=== PATIENT | male | born 1985 | race Caucasian/White ===

== ENCOUNTER 2018-07-31 20:25 | Emergency (ER) | payer MEDICAID, OTHER ==
[~2018-07-31] VITALS: Ht 182.9 cm; Wt 73.0 kg
[~2018-07-31 20:25] MED LIST: CEPH500C5 PO; NO HOME MEDS
[2018-07-31 20:35] VITALS: BP 126/75
[2018-07-31] MEDS ORDERED: MUPI22OI30 TOP (21:54)
== END 2018-07-31 22:17 | disposition home or self-care (01) ==
LOC: ER 20:26
DX: A49.02 Methicillin resistant Staphylococcus aureus infection, unspecified site (principal); J34.0 Abscess, furuncle and carbuncle of nose; I10 Essential (primary) hypertension; F17.200 Nicotine dependence, unspecified, uncomplicated; F15.90 Other stimulant use, unspecified, uncomplicated; F11.90 Opioid use, unspecified, uncomplicated
CPT/HCPCS: 99283

== ENCOUNTER 2018-08-28 14:56 | Emergency (ER) | payer MEDICAID ==
[~2018-08-28] VITALS: Ht 182.9 cm; Wt 84.1 kg
[2018-08-28 15:19] VITALS: BP 120/81
[2018-08-28] MEDS ORDERED: TETanus/Pertussis (Acell)/Diphther VAC/PF (Tdap-Adult) 0.5ml syringe IM ONE (15:30)
[2018-08-28] MEDS ORDERED: LIDOcaine 1.5% w/epinephrine 1:200,000 5ml ampul IJ ONE (15:30)
[2018-08-28] MEDS ORDERED: CEPH-572 PO (15:51)
[2018-08-28] MEDS ORDERED: SULF1TAB49 PO (15:51)
== END 2018-08-28 16:13 | disposition home or self-care (01) ==
LOC: ER 14:57
DX: L02.413 Cutaneous abscess of right upper limb (principal); I10 Essential (primary) hypertension; F15.90 Other stimulant use, unspecified, uncomplicated; F11.90 Opioid use, unspecified, uncomplicated; Z86.14 Personal history of Methicillin resistant Staphylococcus aureus infection
CPT/HCPCS: 10060; 90471; 90715; 99283; A6255; A6449; J3490

== ENCOUNTER 2019-02-07 22:38 | Emergency (ER) | payer MEDICAID, OTHER ==
[~2019-02-07] VITALS: Ht 177.8 cm; Wt 85.0 kg
[~2019-02-07 22:38] MED LIST changes: -CEPH500C5 PO
[2019-02-07 22:52] VITALS: BP 137/77
[2019-02-07] MEDS ORDERED: sulfamethoxazole/trimethoprim DS (800/160mg) tablet PO ONE (23:50)
[2019-02-07] MEDS ORDERED: cephalexin 250mg capsule PO ONE (23:50)
[2019-02-07] MEDS ORDERED: SULF1TAB49 PO (23:52)
[2019-02-07] MEDS ORDERED: MUPI22OI30 TOP (23:52)
[2019-02-07] MEDS ORDERED: CEPH-572 PO (23:52)
== END 2019-02-08 00:20 | disposition home or self-care (01) ==
LOC: ER 22:38
DX: L02.11 Cutaneous abscess of neck (principal); I10 Essential (primary) hypertension; Z86.14 Personal history of Methicillin resistant Staphylococcus aureus infection; F15.90 Other stimulant use, unspecified, uncomplicated; F11.90 Opioid use, unspecified, uncomplicated; Z79.899 Other long term (current) drug therapy
CPT/HCPCS: 99283

== ENCOUNTER 2020-07-21 20:02 | Emergency (ER) | payer MEDICAID ==
[~2020-07-21] VITALS: Ht 182.9 cm; Wt 81.8 kg
[2020-07-21 20:21] VITALS: BP 122/71
[2020-07-21] MEDS ORDERED: MUPI22OI30 TOP (20:53)
[2020-07-21] MEDS ORDERED: SULF1TAB49 PO (20:53)
== END 2020-07-21 21:09 | disposition home or self-care (01) ==
LOC: ER 20:03
DX: S90.912A Unspecified superficial injury of left ankle, initial encounter (principal); S60.911A Unspecified superficial injury of right wrist, initial encounter; L03.116 Cellulitis of left lower limb; L03.113 Cellulitis of right upper limb; I10 Essential (primary) hypertension; F15.90 Other stimulant use, unspecified, uncomplicated; F11.90 Opioid use, unspecified, uncomplicated; Z86.14 Personal history of Methicillin resistant Staphylococcus aureus infection; Z72.89 Other problems related to lifestyle; Z79.899 Other long term (current) drug therapy; X58.XXXA Exposure to other specified factors, initial encounter; Y93.89 Activity, other specified; Y92.89 Other specified places as the place of occurrence of the external cause; Y99.8 Other external cause status
CPT/HCPCS: 99283

== ENCOUNTER 2020-08-07 11:20 | Emergency (ER) | payer MEDICAID ==
[~2020-08-07] VITALS: Ht 182.9 cm; Wt 84.1 kg
[2020-08-07 11:38] VITALS: BP 119/71
== END 2020-08-07 12:03 | disposition home or self-care (01) ==
LOC: ER 11:21
DX: R50.9 Fever, unspecified (principal); R11.2 Nausea with vomiting, unspecified; R53.1 Weakness; I10 Essential (primary) hypertension; F15.90 Other stimulant use, unspecified, uncomplicated; F11.90 Opioid use, unspecified, uncomplicated; F19.90 Other psychoactive substance use, unspecified, uncomplicated; Z86.14 Personal history of Methicillin resistant Staphylococcus aureus infection; Z72.89 Other problems related to lifestyle
CPT/HCPCS: 99281

== ENCOUNTER 2020-08-20 05:57 | Emergency (ER) | payer MEDICAID ==
[~2020-08-20] VITALS: Ht 177.8 cm; Wt 84.1 kg
[2020-08-20 06:01] VITALS: BP 146/91
[2020-08-20] MEDS ORDERED: ondansetron 4mg rapidly disintigrating tab PO ONE (06:15)
== END 2020-08-20 06:21 | disposition home or self-care (01) ==
LOC: ER 05:57
DX: R11.2 Nausea with vomiting, unspecified (principal); R19.7 Diarrhea, unspecified; R50.9 Fever, unspecified; I10 Essential (primary) hypertension; F15.90 Other stimulant use, unspecified, uncomplicated; F11.90 Opioid use, unspecified, uncomplicated; Z86.14 Personal history of Methicillin resistant Staphylococcus aureus infection; Z72.89 Other problems related to lifestyle
CPT/HCPCS: 99283

== ENCOUNTER 2020-08-27 09:22 | Emergency (ER) | payer MEDICAID ==
[~2020-08-27] VITALS: Ht 177.8 cm; Wt 87.6 kg
[2020-08-27] MEDS ORDERED: ondansetron 4mg rapidly disintigrating tab PO ONE (09:40)
--- NOTE | 2020-08-27 09:55 | NUR ---
PT PROVIDED URINE. PT ADMITTED TO OPIATE USE RECENTLY
[2020-08-27 10:16] LABS: BASOPHILS % (AUTO) 0.6 % (0-1); EOSINOPHILS # (AUTO) 0.1 X10'3 (0-0.9); EOSINOPHILS % (AUTO) 3.1 % (0-6); HEMATOCRIT 40.4 % (42.0-52.0); HEMOGLOBIN 13.8 g/dl (14.0-17.9); LYMPHOCYTES # (AUTO) 1.3 X10'3 (1.1-4.8); LYMPHOCYTES % (AUTO) 30.5 % (21-51); MEAN CORPUSCULAR HEMOGLOBIN 28.9 PG (27.0-31.0); MEAN PLATELET VOLUME 6.8 FL (7.4-10.4); MONOCYTES # (AUTO) 0.4 X10'3 (0-0.9); MONOCYTES % (AUTO) 8.7 % (2-12); NEUTROPHILS # (AUTO) 2.4 X10'3 (1.8-7.7); NEUTROPHILS % (AUTO) 57.1 % (42-75); PLATELET COUNT 163 X10'3 (140-440); RED BLOOD COUNT 4.76 X10'6 (4.70-6.10); RED CELL DISTRIBUTION WIDTH 13.4 % (11.5-14.5); WHITE BLOOD COUNT 4.2 X10'3 (4.5-11.0)
[2020-08-27 10:19] LABS: CLARITY,URINE CLEAR (Clear); COLOR,URINE YELLOW (Yellow); GLUCOSE, URINE NEGATIVE (Neg); KETONES,URINE NEGATIVE (Neg); LEUKOCYTE ESTERASE ,URINE NEGATIVE (Neg); NITRITES, URINE NEGATIVE (Neg); OCCULT BLOOD,URINE NEGATIVE (Neg); PH,URINE 5.5 (4.8-8.0); PROTEIN,URINE TRACE mg/dl (Neg)
[2020-08-27 10:23] LABS: UA COLLECTION TYPE CLN CATCH MIDSTREAM
[2020-08-27 10:26] LABS: MUCUS STRANDS MODERATE /LPF (Neg); SQUAMOUS EPITHELIAL CELL,UR FEW /LPF (FEW)
[2020-08-27 10:27] LABS: BACTERIA,URINE FEW /HPF (Neg); RBC,URINE 0-2 /HPF (0-2); WBC,URINE 0-4 /HPF (0-4)
[2020-08-27 10:34] LABS: URINE AMPHETAMINE SCREEN POSITIVE (Neg); URINE BARBITUATE SCREEN NEGATIVE (Neg); URINE BENZODIAZEPINES SCREEN NEGATIVE (Neg); URINE CANNABINOID SCREEN NEGATIVE (Neg); URINE COCAINE SCREEN NEGATIVE (Neg); URINE METHADONE SCREEN NEGATIVE (Neg); URINE OPIATE SCREEN POSITIVE (Neg); URINE PHENCYCLIDINE SCREEN NEGATIVE (Neg)
[2020-08-27 10:34] LABS: ALANINE AMINOTRANSFERASE 120 U/L (12-78); ALBUMIN 3.7 G/DL (3.4-5.0); ALBUMIN/GLOBULIN RATIO 0.9 (1.1-1.5); ALKALINE PHOSPHATASE 85 IU/L (46-116); ANION GAP 7 (8-16); ASPARTATE AMINO TRANSFERASE 79 U/L (10-37); BILIRUBIN,TOTAL 0.5 MG/DL (0.1-1.0); BLOOD UREA NITROGEN 18 MG/DL (7-18); BUN/CREATININE RATIO 20.2 (5.4-32.0); CALCIUM 8.8 MG/DL (8.5-10.1); CHLORIDE 103 MMOL/L (99-107); CREATININE 0.89 MG/DL (0.60-1.10); GLUCOSE 109 MG/DL (70-104); POTASSIUM 3.7 MMOL/L (3.5-5.1); SODIUM 141 MMOL/L (135-145); TOTAL CARBON DIOXIDE 30.9 MMOL/L (24-32); eGFR > 90 ML/MIN
[2020-08-27 10:58] VITALS: BP 127/62
== END 2020-08-27 10:54 | disposition home or self-care (01) ==
LOC: ER 09:22
DX: R11.2 Nausea with vomiting, unspecified (principal); R10.13 Epigastric pain; R19.7 Diarrhea, unspecified; I10 Essential (primary) hypertension; F12.90 Cannabis use, unspecified, uncomplicated; F15.90 Other stimulant use, unspecified, uncomplicated; Z86.14 Personal history of Methicillin resistant Staphylococcus aureus infection; Z72.89 Other problems related to lifestyle
CPT/HCPCS: 36415; 80053; 80305; 81001; 85025; 99283

== ENCOUNTER 2021-01-25 13:13 | Emergency (ER) | payer MEDICAID ==
[~2021-01-25] VITALS: Ht 180.3 cm; Wt 81.8 kg
[2021-01-25 13:27] VITALS: BP 137/86
[2021-01-25] MEDS ORDERED: sulfamethoxazole/trimethoprim DS (800/160mg) tablet PO ONE (14:00)
[2021-01-25] MEDS ORDERED: cephalexin 250mg capsule PO ONE (14:00)
[2021-01-25] MEDS ORDERED: CEPH-585 PO (14:14)
[2021-01-25] MEDS ORDERED: SULF1TAB49 PO (14:14)
[2021-01-25] MEDS ORDERED: NALO4SPR NS (14:15)
== END 2021-01-25 14:18 | disposition home or self-care (01) ==
LOC: ER 13:14
DX: L02.413 Cutaneous abscess of right upper limb (principal); F15.10 Other stimulant abuse, uncomplicated; I10 Essential (primary) hypertension; F12.90 Cannabis use, unspecified, uncomplicated; F11.90 Opioid use, unspecified, uncomplicated; F19.90 Other psychoactive substance use, unspecified, uncomplicated; Z86.14 Personal history of Methicillin resistant Staphylococcus aureus infection; Z72.89 Other problems related to lifestyle; Z79.2 Long term (current) use of antibiotics; Z79.899 Other long term (current) drug therapy
CPT/HCPCS: 99283

== ENCOUNTER 2021-03-30 06:49 | Emergency (ER) | payer MEDICAID ==
[~2021-03-30] VITALS: Ht 180.3 cm; Wt 90.0 kg
[~2021-03-30 06:49] MED LIST changes: +NALO4SPR NS
[2021-03-30] MEDS ORDERED: normal saline 1000ML IV soln IVB ONE (07:00)
--- NOTE | 2021-03-30 10:03 | NUR ---
I CALLLED PT'S [facility] [phone], THEY SAID THEY WOULD GET HER A MESSAGE TO PICK PT UP.
[2021-03-30 10:43] VITALS: BP 117/74
== END 2021-03-30 10:44 | disposition home or self-care (01) ==
LOC: ER 06:49
DX: T40.1X4A Poisoning by heroin, undetermined, initial encounter (principal); T43.624A Poisoning by amphetamines, undetermined, initial encounter; R53.83 Other fatigue; F15.10 Other stimulant abuse, uncomplicated; F11.10 Opioid abuse, uncomplicated; F17.200 Nicotine dependence, unspecified, uncomplicated; I10 Essential (primary) hypertension; F12.90 Cannabis use, unspecified, uncomplicated; Y92.89 Other specified places as the place of occurrence of the external cause; Z86.14 Personal history of Methicillin resistant Staphylococcus aureus infection
CPT/HCPCS: 93005; 96360; 99283; J7030

== ENCOUNTER 2021-06-01 21:13 | Emergency (ER) | payer MEDICAID ==
[~2021-06-01] VITALS: Ht 182.9 cm; Wt 85.0 kg
[2021-06-01 21:36] VITALS: BP 119/86
[2021-06-01 22:07] LABS: BASOPHILS % (AUTO) 0.5 % (0-1); EOSINOPHILS # (AUTO) 0.2 X10'3 (0-0.9); EOSINOPHILS % (AUTO) 3.1 % (0-6); HEMATOCRIT 41.8 % (42.0-52.0); HEMOGLOBIN 14.3 g/dl (14.0-17.9); LYMPHOCYTES # (AUTO) 1.7 X10'3 (1.1-4.8); LYMPHOCYTES % (AUTO) 29.9 % (21-51); MEAN CORPUSCULAR HGB CONC 34.1 g/dL (33.0-36.5); MEAN CORPUSCULAR VOLUME 82.1 FL (78-98); MEAN PLATELET VOLUME 6.7 FL (7.4-10.4); MONOCYTES # (AUTO) 0.5 X10'3 (0-0.9); MONOCYTES % (AUTO) 8.9 % (2-12); NEUTROPHILS # (AUTO) 3.3 X10'3 (1.8-7.7); NEUTROPHILS % (AUTO) 57.6 % (42-75); PLATELET COUNT 205 X10'3 (140-440); RED CELL DISTRIBUTION WIDTH 13.8 % (11.5-14.5); WHITE BLOOD COUNT 5.7 X10'3 (4.5-11.0)
[2021-06-01 22:17] LABS: ALANINE AMINOTRANSFERASE 125 U/L (12-78); ALBUMIN 3.5 G/DL (3.4-5.0); ALBUMIN/GLOBULIN RATIO 0.7 (1.1-1.5); ALKALINE PHOSPHATASE 88 IU/L (46-116); ANION GAP 4 (8-16); ASPARTATE AMINO TRANSFERASE 80 U/L (10-37); BILIRUBIN,TOTAL 0.3 MG/DL (0.1-1.0); BLOOD UREA NITROGEN 18 MG/DL (7-18); BUN/CREATININE RATIO 19.8 (5.4-32.0); CHLORIDE 104 MMOL/L (99-107); CREATININE 0.91 MG/DL (0.60-1.10); GLUCOSE 108 MG/DL (70-104); POTASSIUM 4.3 MMOL/L (3.5-5.1); SODIUM 142 MMOL/L (135-145); TOTAL CARBON DIOXIDE 33.9 MMOL/L (24-32); TOTAL PROTEIN 8.2 G/DL (6.4-8.2); eGFR > 90 ML/MIN
== END 2021-06-02 05:20 | disposition home or self-care (01) ==
LOC: ER 21:17
DX: R60.0 Localized edema (principal); M79.672 Pain in left foot; M79.671 Pain in right foot; F19.10 Other psychoactive substance abuse, uncomplicated; I10 Essential (primary) hypertension; F17.200 Nicotine dependence, unspecified, uncomplicated; F12.90 Cannabis use, unspecified, uncomplicated; F11.90 Opioid use, unspecified, uncomplicated; F15.90 Other stimulant use, unspecified, uncomplicated; Z86.14 Personal history of Methicillin resistant Staphylococcus aureus infection; Z72.89 Other problems related to lifestyle; Z79.899 Other long term (current) drug therapy
CPT/HCPCS: 36415; 80053; 83605; 85025; 87040; 99283

== ENCOUNTER 2021-08-27 08:34 | Emergency (ER) | payer MEDICAID ==
[~2021-08-27] VITALS: Ht 175.3 cm; Wt 79.0 kg
[2021-08-27 08:48] VITALS: BP 156/81
== END 2021-08-27 21:00 | disposition left against medical advice (07) ==
LOC: ER 08:34
DX: L02.414 Cutaneous abscess of left upper limb (principal); Z53.21 Procedure and treatment not carried out due to patient leaving prior to being seen by health care provider

== ENCOUNTER 2021-08-27 22:05 | Inpatient (IN) | payer MEDICAID ==
[~2021-08-27] VITALS: Ht 182.9 cm; Wt 76.0 kg
[2021-08-28] VITALS (19 sets, daily range): BP systolic 106–138; BP diastolic 62–91
[2021-08-28] MEDS ORDERED: ampicillin/sulbac 3gm/NS 100ml 100 ML IV STA (03:28)
[2021-08-28] MEDS ORDERED: normal saline 1000ML IV soln IVB ONE (03:30)
[2021-08-28] MEDS ORDERED: vancomycin/NS 1 GM ADD-VANTAGE 250 ML IV ONE (03:30)
[2021-08-28 04:09] LABS: BASOPHILS % (AUTO) 0.4 % (0-1); EOSINOPHILS # (AUTO) 0.1 X10'3 (0-0.9); EOSINOPHILS % (AUTO) 1.5 % (0-6); HEMATOCRIT 42.1 % (42.0-52.0); HEMOGLOBIN 14.6 g/dl (14.0-17.9); LYMPHOCYTES # (AUTO) 1.8 X10'3 (1.1-4.8); MEAN CORPUSCULAR HEMOGLOBIN 28.7 PG (27.0-31.0); MEAN CORPUSCULAR HGB CONC 34.7 g/dL (33.0-36.5); MEAN CORPUSCULAR VOLUME 82.6 FL (78-98); MEAN PLATELET VOLUME 7.1 FL (7.4-10.4); MONOCYTES # (AUTO) 0.7 X10'3 (0-0.9); MONOCYTES % (AUTO) 8.8 % (2-12); NEUTROPHILS % (AUTO) 65.3 % (42-75); PLATELET COUNT 166 X10'3 (140-440); RED CELL DISTRIBUTION WIDTH 13.3 % (11.5-14.5); WHITE BLOOD COUNT 7.7 X10'3 (4.5-11.0)
[2021-08-28 04:17] LABS: ALANINE AMINOTRANSFERASE 19 U/L (12-78); ALBUMIN 3.5 G/DL (3.4-5.0); ALBUMIN/GLOBULIN RATIO 0.7 (1.1-1.5); ALKALINE PHOSPHATASE 89 IU/L (46-116); ANION GAP 7 (8-16); ASPARTATE AMINO TRANSFERASE 15 U/L (10-37); BILIRUBIN,TOTAL 0.5 MG/DL (0.1-1.0); BLOOD UREA NITROGEN 19 MG/DL (7-18); CALCIUM 8.6 MG/DL (8.5-10.1); CHLORIDE 101 MMOL/L (99-107); GLUCOSE 94 MG/DL (70-104); POTASSIUM 4.4 MMOL/L (3.5-5.1); SODIUM 138 MMOL/L (135-145); TOTAL CARBON DIOXIDE 30.5 MMOL/L (24-32); TOTAL PROTEIN 8.2 G/DL (6.4-8.2); eGFR 84 ML/MIN
[2021-08-28] MEDS ORDERED: iohexol 300mg/ml 100ml inj. ONE (05:53)
[2021-08-28] MEDS ORDERED: TETanus/Pertussis (Acell)/Diphther VAC/PF (Tdap-Adult) 0.5ml syringe IMVAC ONE (08:00)
[2021-08-28] MEDS ORDERED: normal saline 1000ml 1,000 ML IV ONE (08:00)
--- NOTE | 2021-08-28 08:48 | NUR ---
Patient refused covid test, Dr Sainz notified
[2021-08-28 10:05] LABS: CLARITY,URINE CLEAR (Clear); COLOR,URINE YELLOW (Yellow); GLUCOSE, URINE NEGATIVE (Neg); KETONES,URINE NEGATIVE (Neg); LEUKOCYTE ESTERASE ,URINE NEGATIVE (Neg); NITRITES, URINE NEGATIVE (Neg); OCCULT BLOOD,URINE NEGATIVE (Neg); PROTEIN,URINE NEGATIVE (Neg); UA COLLECTION TYPE CLN CATCH MIDSTREAM; UROBILINOGEN,URINE 0.2 E.U/dL (0.2-1.0)
[2021-08-28 10:08] LABS: URINE AMPHETAMINE SCREEN POSITIVE (Neg); URINE BARBITUATE SCREEN NEGATIVE (Neg); URINE BENZODIAZEPINES SCREEN NEGATIVE (Neg); URINE CANNABINOID SCREEN NEGATIVE (Neg); URINE COCAINE SCREEN NEGATIVE (Neg); URINE METHADONE SCREEN NEGATIVE (Neg); URINE OPIATE SCREEN POSITIVE (Neg); URINE PHENCYCLIDINE SCREEN NEGATIVE (Neg)
[2021-08-28] MEDS ORDERED: HYDROcodone/acetaminophen 5mg/325mg tablet PO PRN (10:45)
[2021-08-28] MEDS ORDERED: magnesium Cl slow-release 64mg tablet PO PRN (10:45)
[2021-08-28] MEDS ORDERED: acetaminophen 650mg rectal suppository RC PRN (10:45)
[2021-08-28] MEDS ORDERED: potassium Cl 20 mEq SR tablet PO PRN ×2 (10:45)
[2021-08-28] MEDS ORDERED: ondansetron/PF 4mg/2ml inj IV PRN ×2 (10:45→10:50)
[2021-08-28] MEDS ORDERED: HYDROcodone/acetaminophen 10/325mg tab PO PRN (10:45)
[2021-08-28] MEDS ORDERED: acetaminophen 325mg tablet PO PRN ×2 (10:45)
[2021-08-28] MEDS ORDERED: diphenhydrAMINE 25mg capsule PO PRN (10:45)
[2021-08-28] MEDS ORDERED: bisacodyl 10mg suppository rectal RC PRN (10:45)
[2021-08-28] MEDS ORDERED: mag hydrox/Alum hydrox/simeth 30ml oral suspension PO PRN (10:45)
[2021-08-28] MEDS ORDERED: magnesium 2GM in 50ml NS 50 ML IV PRN (10:45)
[2021-08-28] MEDS ORDERED: morphine 2 MG/ML inj. syringe IV PRN ×3 (10:45→10:50)
[2021-08-28] MEDS ORDERED: magnesium hydroxide 30ml (MOM) UD suspension PO PRN (10:45)
[2021-08-28] MEDS ORDERED: potassium Cl 40MEQ/1/2NS 520ml 520 ML IV PRN ×2 (10:45)
[2021-08-28] MEDS ORDERED: magnesium 4gm in 100ml NS 100 ML IV PRN (10:45)
[2021-08-28] MEDS ORDERED: morphine 4 MG/ML inj SYRINge IV PRN (10:50)
[2021-08-28] MEDS ORDERED: ringers solution, lacted 1,000 ML IV SCH (10:50)
[2021-08-28] MEDS ORDERED: proCHLORperazine 10 MG/2 ml inj IV PRN (10:50)
[2021-08-28] MEDS ORDERED: meperidine/PF 25mg/ml syringe IV PRN ×3 (10:50)
[2021-08-28] MEDS ORDERED: sevoflurane 250ml liquid IH ONE (11:02)
[2021-08-28] MEDS ORDERED: fentaNYL/PF 50MCG/1 ML 2ML syringe ONE (11:10)
[2021-08-28] MEDS ORDERED: midazolam 1 mg/ML 2ml injection ONE (11:10)
[2021-08-28] MEDS ORDERED: propofol inj 20 ML IV ONE (11:18)
[2021-08-28] MEDS ORDERED: LIDOcaine 2% (20mg/ml) 5ml vial ONE (11:20)
--- NOTE | 2021-08-28 12:02 | NUR ---
Received from OR via [facility] IN STABLE CONDITION , accompanied by Anesthesiologist and REMOTE SENSING RESEARCH SCIENTIST report given by REMOTE SENSING RESEARCH SCIENTIST AND Anesthesiolgist. Addendum: 08/28/21 at 1231 by Jeri Gtz RN Amended: Links added.
[2021-08-28 12:15] LABS: HEMOGLOBIN A1C 5.8 % (4.5-6.2)
--- NOTE | 2021-08-28 13:55 | NUR ---
Received report from BLUEPRINTING MACHINE OPERATOR, Melissa
[2021-08-28] MEDS ORDERED: VANCOmycin 1250MG/NS 250ml Bag 250 ML IV SCH (14:00)
--- NOTE | 2021-08-28 14:02 | NUR ---
PATIENT DISCHARGED TO SURGICAL FLOOR ROOM 344B FROM PACU IN STABLE CONDITION AFTER REPORT GIVEN TO RN TAKING OVER PATIENTS CARE. PATIENT TRANSPORTED VIA [facility] WITH RN. Addendum: 08/28/21 at 1408 by Jeri Gtz RN Amended: Links added.
[2021-08-28] MEDS: piperacillin/tazo 3.375gm/50ml 50 ML IV SCH ×2 (14:15→17:20)
[2021-08-28] MEDS: normal saline 1000ml 1,000 ML IV SCH ×2 (14:15→15:10)
[2021-08-28] MEDS ORDERED: heparin, porcine 5000 units/ml vial SQ SCH (20:00)
[2021-08-28] MEDS ORDERED: docusate sod 100mg capsule PO SCH (20:00)
[2021-08-28] MEDS ORDERED: K and/or MAG REPLACEMENT MC SCH (20:00)
[2021-08-30] MEDS ORDERED: VANCOMYCIN LEVEL IV ONE (01:30)
== END 2021-08-28 17:42 | disposition left against medical advice (07) | DRG 364 ==
LOC: ER 22:06 → ED HOLD 08-28 10:46 → SUR 3N 08-28 14:05
PROVIDERS: ADMIT Family Medicine; ATTEND Family Medicine
PROC: BP2U1ZZ Computerized Tomography (CT Scan) of Left Upper Extremity using Low Osmolar Contrast (ICD-10-PCS; 2021-08-28)
PROC: 0JDH0ZZ Extraction of Left Lower Arm Subcutaneous Tissue and Fascia, Open Approach (ICD-10-PCS; principal; 2021-08-28 11:02)
DX: L03.114 Cellulitis of left upper limb (principal); F15.20 Other stimulant dependence, uncomplicated; L02.414 Cutaneous abscess of left upper limb; Z20.822 Contact with and (suspected) exposure to COVID-19; I10 Essential (primary) hypertension; Z53.29 Procedure and treatment not carried out because of patient's decision for other reasons; Z86.14 Personal history of Methicillin resistant Staphylococcus aureus infection
CPT/HCPCS: 36415; 73201; 80053; 80305; 81003; 83036; 83605; 84145; 85025; 87040; 87070; 87075; 87077; 87186; 87635; 99285; A4618; A6266; A6446; A6449; A7000; C9803; G0378; J0295; J2001; J2250; J2543; J2704; J3010; J3370; J7030; Q9967

== ENCOUNTER 2021-11-22 00:39 | Emergency (ER) | payer MEDICAID ==
[~2021-11-22] VITALS: Ht 180.3 cm; Wt 81.8 kg
[~2021-11-22 00:39] MED LIST changes: -NALO4SPR NS
[2021-11-22] MEDS ORDERED: HYDR-3965 PO (02:21)
[2021-11-22 02:38] VITALS: BP 122/87
== END 2021-11-22 02:39 | disposition home or self-care (01) ==
LOC: ER 00:39
DX: M25.511 Pain in right shoulder (principal); F12.10 Cannabis abuse, uncomplicated; F15.10 Other stimulant abuse, uncomplicated; F11.10 Opioid abuse, uncomplicated; I10 Essential (primary) hypertension; Z79.899 Other long term (current) drug therapy; W11.XXXA Fall on and from ladder, initial encounter; Y93.89 Activity, other specified; Y92.89 Other specified places as the place of occurrence of the external cause; Y99.8 Other external cause status
CPT/HCPCS: 73030; 99283

== ENCOUNTER 2025-04-02 09:49 | Outpatient (CLI) | payer MEDICAID ==
[~2025-04-02 09:49] MED LIST changes: +DOL10T PO
--- NOTE | 2025-04-02 11:25 | RADIOLOGY REPORT ---
Exam: US US NON VASCULAR Date: 04/02/2025 10:00 AM Clinical History: BENIGN LIPOMATOUS NEOPLASM OF SKIN, SUBCU OF TRUNK Comparison: None Technique: Targeted sonographic evaluation of the soft tissues of the torso was obtained utilizing grayscale and color Doppler imaging. Findings/Impression: There is a oval isoechoic mass in the soft tissues of the torso in region of palpable abnormality penny suring 2.2 x 1.9 x 0.7 cm suggestive of a lipoma. However given patient reports this is increased in size, further evaluation with contrast-enhanced MRI is recommended.
== END 2025-04-02 23:59 | disposition home or self-care (01) ==
LOC: RAD 09:49
PROVIDERS: ATTEND Family Medicine
DX: D17.1 Benign lipomatous neoplasm of skin and subcutaneous tissue of trunk (principal)
CPT/HCPCS: 76881